=== PATIENT | female | born 2000 | race African-American/Black ===

== ENCOUNTER 2021-08-05 19:43 | Emergency (ER) | payer OTHER ==
[2021-08-05] MEDS ORDERED: ONDANSETRON 4 MG/2 ML VIAL ONE (19:54)
[2021-08-05] MEDS ORDERED: HYDROMORPHONE HCL 1 MG/ML INJ ONE (19:54)
[2021-08-05 20:06] LABS: Absolute Lymphocytes (CBC) 4.5 K/uL (0.7-4.9); Hematocrit 39.4 % (36.0-45.0); MCV 72.5 fL (80-100); MPV 8.5 fL (7.6-11.3); RBC Red Blood Cell Count 5.43 M/uL (3.86-4.86)
[2021-08-05 20:28] LABS: Albumin 3.9 g/dL (3.4-5.0); Bilirubin Total 0.2 mg/dL (0.2-1.0); Potassium 3.3 mmol/L (3.5-5.1); Protein, Total 8.1 g/dL (6.4-8.2)
[2021-08-05] MEDS ORDERED: LIDOCAINE 1% W/EPI 1:100,000 MDV 50 ML VIAL ONE (20:38)
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
[2021-08-05] MEDS ORDERED: TETANUS & DIPHTHERIA TOX,ADULT 0.5 ML VIAL ONE (21:02)
[2021-08-05 21:18] VITALS: BP 151/109; TEMP 98.7; O2SAT 100
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
== END 2021-08-05 21:06 | disposition home or self-care (01) ==
LOC: ER 19:43
DX: S91.332A Puncture wound without foreign body, left foot, initial encounter (principal); Z23 Encounter for immunization
CPT/HCPCS: 85025; 36415; 80053; 73630; 90471; 90714; 96375; 96374; 99284; J1170; J2405